=== PATIENT | male | born 1955 | race Caucasian/White ===

== ENCOUNTER 2025-06-21 06:25 | Day surgery (SDC) | payer MEDICARE, BC, SELFPAY | END 2025-06-21 10:43 | disposition home or self-care (01) | LOC: GI 06:25 | PROVIDERS: ATTENDING PHYSICIAN Internal Medicine | DX: Z12.11 Encounter for screening for malignant neoplasm of colon (principal); K57.30 Diverticulosis of large intestine without perforation or abscess without bleeding; K64.8 Other hemorrhoids; K62.89 Other specified diseases of anus and rectum; D12.3 Benign neoplasm of transverse colon; K31.89 Other diseases of stomach and duodenum | CPT/HCPCS: 45385; 88305 ==